=== PATIENT | female | born 1970 | race Asian ===

== ENCOUNTER → 2021-12-10 | Outpatient (CLI) | payer OTHER ==
--- NOTE | 2021-12-10 17:17 | Diagnostic Imaging Report ---
INDICATION: Back pain. EXAMINATION: Thoracic spine. FINDINGS: AP and lateral views of the thoracic spine show normal vertebral body height and alignment. Disc spaces are normal. There is minimal spondylosis with small osteophytes forming anteriorly in the lower thoracic spine. IMPRESSION: Minimal spondylosis of lower thoracic spine. No acute abnormality is seen. Dictated by: Dictated on workstation # [id number]
== END ==
LOC: RAD 11:13
PROVIDERS: ATTEND Family Medicine
DX: M54.6 Pain in thoracic spine (principal)
CPT/HCPCS: 72072

== ENCOUNTER 2021-12-22 15:17 | Outpatient (RCR) | payer OTHER | END 2021-12-28 | disposition home or self-care (01) | PROVIDERS: ATTEND Family Medicine | DX: M54.6 Pain in thoracic spine (principal) ==